=== PATIENT | female | born 1980 | race Caucasian/White ===

== ENCOUNTER 2016-12-10 10:09 | Emergency (ER) | payer MEDICAID ==
[~2016-12-10] VITALS: Ht 157.5 cm; Wt 64.5 kg
[~2016-12-10 10:09] MED LIST: FERR27TA; IRON; NO MEDS; PREN1TAB12; PRENATAL VITAMINS
[2016-12-10 10:15] VITALS: Ht 157.5 cm; Wt 64.5 kg
[2016-12-10] MEDS ORDERED: METGEL45 TOP (11:00)
[2016-12-10] MEDS ORDERED: AMOX1TAB10 PO (11:03)
[2016-12-10] MEDS ORDERED: SULF1TAB31 PO (11:04)
--- NOTE | 2016-12-10 11:12 | ERD ---
ER Documentation Chief Complaint Date/Time DATE: 12/10/16 TIME: 11:08 Chief Complaint Complains of pain to left eye x 3 days HPI This is a 36-year-old who presents the emergency department today for some left eye swelling for the past 4 days. Patient states she has had some minor discharge in her eye. Denies any fevers, blurred vision, pain inside her eye.. States she also has a rash on her face that she has had for "a very long time ". States she saw a doctor about it and was told that it is something that happens to "woman of her age" ROS All systems reviewed and are negative except as per history of present illness. Medications Home Meds Active Scripts Sulfamethoxazole/Trimethoprim* (Bactrim Ds* Tablet) 1 Each Tablet, 1 TAB PO BID for 7 Days, #14 TAB Prov:RAND LANDRY PA-C 12/10/16 Amoxicillin/Potassium Clav (Amox-Clav 875-125 mg Tablet) 875-125 mg Tab, 1 TAB PO BID for 7 Days, #14 TAB Prov:RAND LANDRY PA-C 12/10/16 Metronidazole* (Metrogel*) 0.75% -45 Gram Gel, 1 APPLIC TOP BID for 7 Days, #1 TUB Prov:RAND LANDRY PA-C 12/10/16 Reported Medications [No Meds] No Conflict Check 04/07/12 Ferrous Sulfate (Iron) 1 Tab Tablet 06/13/10 Vit/Fe Fumarate/Fa ( 1-1 Tablet) 1 Tab Tablet 06/13/10 [ Vitamins] No Conflict Check 12/06/09 [Iron] No Conflict Check 12/06/09 Allergies Allergies: Coded Allergies: No Known Drug Allergies (Verified Allergy, Mild, 01/10/13) PMhx/Soc Medical and Surgical Hx: pt denies Medical Hx History of Surgery: Yes ( x3, kidney donation) Anesthesia Reaction: No Hx Neurological Disorder: No Hx Respiratory Disorders: No Hx Cardiac Disorders: No Hx Psychiatric Problems: No Hx Miscellaneous Medical Probl: No Hx Alcohol Use: No Hx Substance Use: No Hx Tobacco Use: No Physical Exam Vitals Vital Signs Date Time Temp Pulse Resp B/P Pulse Ox O2 Delivery O2 Flow Rate FiO2 12/10/16 10:15 97.4 55 20 100/51 98 Physical Exam Const: No acute distress Head: Atraumatic Eyes: Normal Conjunctiva. PERRLA. EOM intact. Mild infraorbital swelling with some tenderness ENT: Ears TMs normal. Nose or drainage. Throat erythema no exudate Neck: Full range of motion..~ No meningismus. Resp: Clear to auscultation bilaterally Cardio: Regular rate and rhythm, no murmurs Abd: Soft, non tender, non distended. Normal bowel sounds Skin: Erythematous rash bilateral cheeks, chin and forehead. No purulent drainage Back: No midline or flank tenderness Ext: No cyanosis, or edema Neur: Awake and alert Psych: Normal Mood and Affect Procedures/MDM This a 36-year-old female presents emergency department today for some right eye swelling the past 4 days. Patient did have some very mild swelling infraorbitally. She has no pain with extraocular movement. There is no purulent drainage or erythema. Her symptoms at this time appear most consistent with possible early preseptal cellulitis. Patient is afebrile and otherwise well-appearing. She denies any vision changes or pain inside her eye. Low suspicion for hyphema, globe rupture, orbital cellulitis, acute narrow angle glaucoma, some conjunctival hemorrhage. Patient also appears to have rosacea on her face. Patient was given a prescription for Bactrim and Augmentin for the possible early preseptal cellulitis as well as MetroGel for the rosacea. Patient was also instructed to apply warm compresses to her eye. Low suspicion for SJS, TEN, meningitis, viral exanthem. At this time the patient is stable for discharge and outpatient management. Patient should follow up with their PCP in the next 1-2 days. They may return to the emergency department sooner for any persistent or worsening of symptoms. Patient understood and agreed with the plan. Departure Diagnosis: Primary Impression: Eye problem Additional Impression: Skin problem Condition: Fair Patient Instructions: Rosacea Referrals: WADE PALM MD,TOSHIA SAINI,BRYON NUNEZ,FELIPE MONROY,ESTRELLITA CYR,ELY VELIZ your clinic Additional Instructions: Llame al doctor NAOMI y ramila niki LESLIE PARA DENTRO DE 1-2 WAITE.Dgale a la secretaria que nosotros le instruimos hacer esta leslie.Avise o llame si goodman condicin se empeora antes de la leslie. Regresa aqui si peor o no mejor. Take medications as prescribed Apply warm compresses to left eye RAND LANDRY PA-C Dec 10, 2016 11:11
== END 2016-12-10 11:14 | disposition home or self-care (01) ==
LOC: FTE 10:09
DX: H57.12 Ocular pain, left eye (principal); R21 Rash and other nonspecific skin eruption
CPT/HCPCS: 99284